=== PATIENT | male | born 1970 | race African-American/Black ===

== ENCOUNTER 2019-02-07 09:49 | Outpatient (CLI) ==
[2015-06-22 10:46] VITALS: BMI 32.5
== END 2019-02-07 09:50 | disposition home or self-care (01) ==
LOC: RHC-LAB 09:49 → FCC-LAB 09:50
PROVIDERS: ATTEND Nurse Practitioner Family
DX: E11.9 Type 2 diabetes mellitus without complications (principal); R81 Glycosuria; Z00.00 Encounter for general adult medical examination without abnormal findings
CPT/HCPCS: 36415; 80053; 80061; 81001; 83036; 85025